=== PATIENT | female | born 1965 | race Caucasian/White ===

== ENCOUNTER 2023-03-21 14:15 | Outpatient (CLI) | payer BC ==
[~2023-03-21 14:15] MED LIST: Iopamidol 300 61% 100 ML VIAL FS ONE
== END 2023-03-21 14:16 | disposition home or self-care (01) ==
LOC: CSHCT 14:15
PROVIDERS: ATTEND Internal Medicine Hematology & Oncology
DX: C50.612 Malignant neoplasm of axillary tail of left female breast (principal); C79.51 Secondary malignant neoplasm of bone
CPT/HCPCS: 82565

== ENCOUNTER 2024-07-23 11:59 | Outpatient (CLI) | payer BC ==
[2024-07-23 14:50] LABS: Hematocrit 31.1 % (34.9-44.5); Hemoglobin 10.4 g/dL (12.0-15.5); Mean Corpuscular HGB CONC 33.4 g/dL (32.0-36.0); Mean Corpuscular Hemoglobin 34.1 pg (27.0-33.0); Mean Platelet Volume 11.8 fL (7.4-10.4); Platelet Count 139 10x3/uL (150-450); RBC Distribution Width 15.7 % (11.5-14.5); Red Blood Cell (RBC) Count 3.05 10x6/uL (3.90-5.03); White Blood Cell (WBC) Count 1.8 10x3/uL (3.5-10.5)
== END 2024-07-23 12:00 | disposition home or self-care (01) ==
LOC: CSHLAB 11:59
PROVIDERS: ATTEND Surgery
DX: Z01.818 Encounter for other preprocedural examination (principal); C50.412 Malignant neoplasm of upper-outer quadrant of left female breast
CPT/HCPCS: 85027; 93005; 93010

== ENCOUNTER 2024-11-05 12:54 | Outpatient (CLI) | payer BC | END 2024-11-05 12:55 | disposition home or self-care (01) | LOC: CSHULT 12:54 | PROVIDERS: ATTEND Internal Medicine Hematology & Oncology | DX: C50.612 Malignant neoplasm of axillary tail of left female breast (principal); C79.51 Secondary malignant neoplasm of bone; I42.7 Cardiomyopathy due to drug and external agent; Z79.69 Long term (current) use of other immunomodulators and immunosuppressants | CPT/HCPCS: 93306 ==

== ENCOUNTER 2025-07-10 12:41 | Day surgery (SDC) | payer BC ==
[2025-07-10] MEDS ORDERED: Sodium Bicarbonate 2.5 MEQ/5 ML SDV ONE (13:02)
[2025-07-10 13:27] VITALS: BP 117/76; TEMP 99.3
[2025-07-10 13:40] LABS: INR-International Normal Ratio 1.1; Prothrombin Time 11.9 sec (9.5-12.1)
[2025-07-10 13:52] LABS: #Basophils 0.05 10x3/uL (0.0-0.2); #Eosinophils 0.10 10x3/uL (0.0-0.5); #Monocytes 0.56 10x3/uL (0.0-1.1); #Neutrophils 3.01 10x3/uL (1.5-8.4); %Basophils 1.2 % (0.0-2.0); %Eosinophils 2.5 % (0.0-6.0); %Lymphocytes 8.4 % (18.0-47.0); %Monocytes 13.8 % (0.0-10.0); %Neutrophils 73.9 % (40.0-75.0); Hematocrit 40.2 % (34.9-44.5); Hemoglobin 13.3 g/dL (12.0-15.5); Mean Corpuscular Hemoglobin 32.5 pg (27.0-33.0); Mean Corpuscular Volume 98.3 fL (81.6-98.3); Platelet Count 173 10x3/uL (150-450); Red Blood Cell (RBC) Count 4.09 10x6/uL (3.90-5.03); White Blood Cell (WBC) Count 4.07 10x3/uL (3.5-10.5)
== END 2025-07-10 14:40 | disposition home or self-care (01) ==
LOC: CSHULT 12:41
PROVIDERS: ATTEND Nurse Practitioner Family
PROC: 0W9G3ZZ Drainage of Peritoneal Cavity, Percutaneous Approach (ICD-10-PCS; principal; 2025-07-10)
DX: R18.8 Other ascites (principal); C50.612 Malignant neoplasm of axillary tail of left female breast; C79.51 Secondary malignant neoplasm of bone; E83.52 Hypercalcemia; E78.5 Hyperlipidemia, unspecified; I12.0 Hypertensive chronic kidney disease with stage 5 chronic kidney disease or end stage renal disease; N18.6 End stage renal disease; D63.1 Anemia in chronic kidney disease; Z17.0 Estrogen receptor positive status [ER+]; Z17.21 Progesterone receptor positive status; Z17.32 Human epidermal growth factor receptor 2 negative status; Z90.710 Acquired absence of both cervix and uterus; Z79.899 Other long term (current) drug therapy
CPT/HCPCS: 49083; 85025; 85610

== ENCOUNTER → 2025-08-01 | Day surgery (SDC) | payer BC | LOC: CSHULT 12:24 | PROVIDERS: ATTEND Nurse Practitioner Family | DX: R18.8 Other ascites (principal); Z53.8 Procedure and treatment not carried out for other reasons; C50.612 Malignant neoplasm of axillary tail of left female breast; C79.51 Secondary malignant neoplasm of bone; E83.52 Hypercalcemia; E78.5 Hyperlipidemia, unspecified; I12.0 Hypertensive chronic kidney disease with stage 5 chronic kidney disease or end stage renal disease; N18.6 End stage renal disease; D63.1 Anemia in chronic kidney disease; M79.604 Pain in right leg; Z17.0 Estrogen receptor positive status [ER+]; Z17.21 Progesterone receptor positive status; Z17.32 Human epidermal growth factor receptor 2 negative status; Z90.710 Acquired absence of both cervix and uterus; Z79.899 Other long term (current) drug therapy | CPT/HCPCS: 76705 ==